=== PATIENT | female | born 2000 | race African-American/Black ===

== ENCOUNTER 2024-03-05 11:09 | Emergency (ER) | payer OTHER ==
[~2024-03-05] VITALS: Ht 162.6 cm; Wt 77.2 kg
[2024-03-05] MEDS: ONDANSETRON 4MG 2ML VIAL IV ONE (11:46)
[2024-03-05 11:56] LABS: BASO % 0.2 % (0.0-1.0); EOS # 0.1 10^3/uL (0.0-0.5); EOS % 0.7 % (0.0-3.0); HEMATOCRIT 43.1 % (36.0-47.0); HEMOGLOBIN 14.2 g/dl (12.0-15.5); LYMPH # 3.3 10^3/uL (1.5-5.0); LYMPH % 32.2 % (24.0-44.0); MEAN CORPUSCULAR HEMOGLOBIN 30.2 pg (27.0-33.0); MEAN CORPUSCULAR HGB CONC 32.9 g/dl (32.0-36.5); MEAN CORPUSCULAR VOLUME 91.7 fl (80.0-96.0); MONO # 0.6 10^3/uL (0.0-0.8); NEUTROPHILS # 6.2 10^3/uL (1.5-8.5); NEUTROPHILS % 60.6 % (36.0-66.0); PLATELET COUNT, AUTOMATED 378 10^3/uL (150-450); WHITE BLOOD COUNT 10.2 10^3/uL (4.0-10.0)
[2024-03-05 12:27] LABS: BILIRUBIN,DIRECT 0.1 MG/DL (<0.4); BILIRUBIN,TOTAL 0.4 MG/DL (0.3-1.2); TOTAL PROTEIN 8.5 G/DL (5.7-8.2)
[2024-03-05] MEDS: METOCLOPRAMIDE INJ 10MG/2ML VIAL IV ONE (13:37)
[2024-03-05] MEDS: NS (Normal Saline) 0.9% 1,000 ML IV ONE (13:38)
[2024-03-05] MEDS ORDERED: PROM25TA12 PO (15:55)
[2024-03-05 16:02] VITALS: BP 138/66; TEMP 98.7; O2SAT 99
== END 2024-03-05 16:15 | disposition home or self-care (01) ==
LOC: M ED 11:09
DX: R11.10 Vomiting, unspecified (principal); R19.7 Diarrhea, unspecified; Z79.899 Other long term (current) drug therapy
CPT/HCPCS: 36415; 80047; 80076; 83690; 84702; 85025; 87507; 96361; 96374; 96375; 99284; J2405; J2765

== ENCOUNTER 2024-04-22 16:14 | Emergency (ER) | payer OTHER ==
[~2024-04-22] VITALS: Ht 162.6 cm; Wt 77.8 kg
[~2024-04-22 16:14] MED LIST: PROM25TA12 PO
[2024-04-22] MEDS ORDERED: IBUP200T46 PO (17:00)
[2024-04-22] MEDS: ACETAMINOPHEN 325 MG TAB PO ONE (17:10)
[2024-04-22 17:44] VITALS: BP 132/79; TEMP 97.6; O2SAT 100
== END 2024-04-22 18:31 | disposition home or self-care (01) ==
LOC: M ED 16:14
DX: J02.9 Acute pharyngitis, unspecified (principal); Z79.1 Long term (current) use of non-steroidal anti-inflammatories (NSAID)